=== PATIENT | female | born 1975 | race African-American/Black ===

== ENCOUNTER 2017-12-19 20:01 | Emergency (ER) | payer BC, OTHER ==
[~2017-12-19] VITALS: Ht 172.7 cm; Wt 63.5 kg
[2017-12-19 20:07] VITALS: BP 112/72
[2017-12-19] MEDS ORDERED: ALDACTONE100 MG PO (20:19)
[2017-12-19] MEDS ORDERED: ORACEA40 MG PO (20:20)
== END 2017-12-19 21:33 | disposition home or self-care (01) ==
LOC: ER 20:01
DX: S91.114A Laceration without foreign body of right lesser toe(s) without damage to nail, initial encounter (principal); W21.31XA Struck by shoe cleats, initial encounter; Y93.89 Activity, other specified; Y92.89 Other specified places as the place of occurrence of the external cause; Y99.8 Other external cause status